=== PATIENT | female | born 1950 | race Caucasian/White ===

== ENCOUNTER → 2016-10-24 | Outpatient (CLI) | payer MEDICARE ==
--- NOTE | 2016-10-24 11:28 | KCIC ---
Clavicle right, two views Indication: Right shoulder pain. Time of exam 10:46 a.m. The glenohumeral and acromioclavicular alignment are normal. The acromial humeral space is normal. No fractures are detected. There is no dislocation. Impression: No acute bony abnormality is detected. Electronically signed by: Sheldon Carter MD (October 24, 2016 11:26:59)
--- NOTE | 2016-10-24 11:31 | KCIC ---
Shoulder four views right Indication: Right shoulder pain. Time of exam 10:43 a.m. Acromioclavicular and glenohumeral alignment are normal. The acromiohumeral space is normal. No fracture or dislocation is detected. Impression: No acute bony abnormality is detected. Electronically signed by: Sheldon Carter MD (October 24, 2016 11:29:21)
== END | disposition home or self-care (01) ==
LOC: KCIC 10-23 13:29
PROVIDERS: ATTEND Family Medicine
DX: M25.511 Pain in right shoulder (principal)
CPT/HCPCS: 73000; 73030

== ENCOUNTER → 2016-11-12 | Outpatient (CLI) | payer MEDICARE ==
--- NOTE | 2016-11-12 14:41 | KCIC ---
Indication: Right shoulder pain for several weeks. Multiplanar multisequence imaging of the right shoulder was performed without contrast. The marrow signal intensity is unremarkable. Glenohumeral and acromioclavicular alignment are normal. The biceps tendon appears to be in a normal location within the bicipital groove. Subscapularis tendon of the rotator cuff is intact. There appears to be a full-thickness tear of the supraspinatus tendon of the rotator cuff anteriorly. The defect measures approximate 9 mm transverse dimension. Small amount of fluid is seen within the subacromial subdeltoid bursa. No significant retraction is identified. The infraspinatus tendon is intact. IMPRESSION: Findings consistent with a full-thickness tear of the supraspinatus tendon near its insertion on the footprint. No significant retraction is seen. Electronically signed by: Sheldon Carter MD (11/12/2016 2:37 PM)
== END | disposition home or self-care (01) ==
LOC: KCIC MRI 12:47
PROVIDERS: ATTEND Nurse Practitioner Gerontology
DX: M75.101 Unspecified rotator cuff tear or rupture of right shoulder, not specified as traumatic (principal)
CPT/HCPCS: 73221

== ENCOUNTER → 2016-11-15 | Outpatient (CLI) | payer MEDICARE ==
--- NOTE | 2016-11-15 12:11 | PMGORTHO ---
Bilateral knees, 6 views, 11/15/2016: History: Knee pain AP standing, lateral and tangential patellar views of both knees were obtained as requested. There is narrowing of the medial compartments of both knee joints, worse on the left. There is moderate marginal spurring bilaterally. There is moderate hypertrophic degenerative change at both patellofemoral articulations. No acute fracture or dislocation is identified. Suprapatellar calcific densities on the right probably represent loose bodies in the suprapatellar bursa. Small periarticular calcifications on the left may also be loose bodies. IMPRESSION: 1. Moderate bilateral hypertrophic degenerative change. 2. No acute bony abnormality is detected.
== END ==
LOC: PMGORTHO 11:05
PROVIDERS: ATTEND Nurse Practitioner Gerontology

== ENCOUNTER 2016-12-11 06:27 | Day surgery (SDC) | payer MEDICARE ==
[~2016-12-11 06:27] MED LIST: CHOL10002 PO; CYAN250012 PO; FLUO20TA11 PO; HYDR-2762 PO; LEVO75TA5 PO; LISI1TAB7 PO; LOVA20TA2 PO; OMEP20TA63 PO; PROAIR HFA8.5 GM INH; TRAZ50TA15 PO
[2016-12-11] MEDS ORDERED: EPINEPHrine VIAL 30 MG/30 ML VIAL ONE (06:28)
[2016-12-11] MEDS ORDERED: LIDOCAINE 1% PF 30 ML VIAL. ONE (06:28)
[2016-12-11] MEDS ORDERED: BUPIVACAINE MPF 0.5% 30 ML VIAL. ONE (06:28)
[2016-12-11] MEDS ORDERED: IV RINGERS,LACTATED 1000ML 1,000 ML IV SCH (07:00)
[2016-12-11] MEDS ORDERED: LIDOCAINE 1% 1 ML SYRINGE. ID PRN (07:00)
[2016-12-11] MEDS ORDERED: MORPHINE SULFATE 2 MG/ML DISP.SYRIN. IV PRN (07:00)
[2016-12-11] MEDS ORDERED: HYDROmorphone 2 MG/ML VIAL IV PRN (07:00)
[2016-12-11] MEDS ORDERED: fentaNYL PF VIAL 100 MCG/2 ML VIAL IV PRN ×2 (07:00)
[2016-12-11] MEDS ORDERED: ONDANSETRON PF 4 MG/2 ML VIAL. IV PRN (07:00)
[2016-12-11] MEDS ORDERED: PROCHLORPERAZINE 10 MG/2 ML VIAL. IV PRN (07:00)
[2016-12-11] MEDS ORDERED: BUPIVACAINE MPF 0.25% 30 ML VIAL. ONE (07:27)
--- NOTE | 2016-12-11 07:37 | DISCH ---
DISCHARGE INSTRUCTIONS Condition on Discharge Condition on Discharge: Stable Activity After Discharge Activity Instructions for Disc: Other, see below Other activity instructions: arm to remain in sling Bathing Instructions: Shower-keep dressing dry Weight Bearing Status after Di: Non weight bearing Diet after Discharge Diet after Discharge: Regular Wound Incision Care Wound/Incision Care: Ice to area for comfort, Keep wound/cast CDI, Change dressing Contacting the DR. after DC Call your doctor for: Concerns you may have Follow-Up Follow up with: Wilma in 2 wks PAUL WOODARD II, MD Dec 11, 2016 07:37
[2016-12-11] MEDS ORDERED: LIDOCAINE 2% PF Vial for OR 5 ML VIAL. ONE (07:38)
[2016-12-11] MEDS ORDERED: ROCURONIUM 50 MG/5 ML VIAL. ONE (07:38)
[2016-12-11] MEDS ORDERED: PROPOFOL 20 ML IV ONE (07:38)
[2016-12-11] MEDS ORDERED: ONDANSETRON PF 4 MG/2 ML VIAL. ONE (07:38)
[2016-12-11] MEDS ORDERED: DEXAMETHASONE SOD PHOS 20 MG/5 ML VIAL. ONE (07:38)
[2016-12-11] MEDS ORDERED: fentaNYL PF VIAL 100 MCG/2 ML VIAL ONE (07:39)
--- NOTE | 2016-12-11 07:39 | PDOC ---
BRIEF OPERATIVE NOTE Date: Dec 11, 2016 Pre-Op Diagnosis R RTC tear Post-Op Diagnosis same Procedure Performed Mini Open RTC repair Surgeon Wilma Door Technician Rachel Anesthesiologist Anastacio Anesthesia Type: General, Regional Complications none PAUL WOODARD II, MD Dec 11, 2016 07:39
--- NOTE | 2016-12-11 08:18 | ACF ---
Admission Forms Criteria AMBULATORY SURGERY EXCEPTION CRITERIA Ambulatory Surgery Exception Criteria ( Place 'X' for any and all applicable criteria): Surgery or procedure performed on ambulatory basis may require inpatient stay for[A] ANY ONE of the following(1)(2)(3)(4)(5)(6)(7)(8)(9): [] I. A preoperative situation, condition, or finding that warrants inpatient stay as indicated by ANY ONE of the following: [] a) Inpatient care needed because of severity of a disease or condition rather than the surgery (eg, severe cardiac or respiratory disease, severe infection) (15) (16 ) (17) (18) [] b) Emergent procedure (eg, angioplasty for acute ischemia)(19) [] c) Complex surgical approach or situation as indicated by ANY ONE of the following(3): [] i) Open approach needed instead of usual endoscopic, transcatheter, or other less invasive procedure [] ii) Difficult approach because of previous operation [] iii) Airway monitoring required after open neck procedures(20)(21 ) [] iv) Large mass requiring unusually extensive dissection [] v) Additional complicating feature requiring inpatient care (eg , drain management)(22(23): [] d) Major surgery in a pt with high anesthetic risk as indicated by ANY ONE of the following (2)(3)(5)(7)(8): [] i) ASA risk class III or higher (severe systemic disease impairing function) [D] [] ii) Advanced age (eg, older than 85 years)(14)(24) [] iii) Symptomatic heart failure(25) [] iv) Symptomatic asthma or COPD(8)(21) [] v) Morbid obesity with hemodynamic or respiratory problems(20)( 21)(26)(27) [] vi) Obstructive sleep apnea(20)(21) [] vii) Former premature infants who are younger than 60 weeks [] viii) High risk for severe postoperative abnormalities (eg, severe postoperative hypocalcemia after parathyroidectomy for severe hyperparathyroidism)(27)( 28) [] ix) Unstable angina(25) [] e) Drug-related risk requiring inpatient stay as indicated by ANY ONE of the following(5)(10)(14)(32)(33) [] i) Procedure requires discontinuing drugs or other therapy (eg , antiarrhythmic medication, antiseizure medication), which necessitates inpatient observation or treatment.(18)(31) [] ii) Major surgery and high risk drug use as indicated by ANY ONE of the following: [] 1) Active abuse of cocaine or similar drug [] 2) Monoamine oxidase inhibitor use [] 3) Other drug identified as posing risk [] f) Inadequate outpatient care situation as indicated by ANY ONE of the following(5)(10)(14)(32)(33) [] i) Patient lives remote from medical facility and procedure has urgent complication potential, and temporary nearby residence cannot be arranged [] ii) Patient will have postprocedure incapacitation and inadequate assistance at home, or alternative level of care cannot be arranged. [] iii) Patient will have long general anesthesia or procedure side effect resolution time, and competent person to stay with patient on first postoperative night at home or alternative level of care cannot be arranged. [] iv) Other inadequate outpatient situation that cannot be handled by other means [ ] II. A perioperative event, condition, or finding that warrants inpatient stay as indicated by ANY ONE of the following (1)(2)(3): [] a) Inadequate physiologic recovery: cardiovascular, respiratory, or hemodynamic status not normal or near preoperative baseline(18) [] b) Hemodynamic instability [] c) Patient not alert with near normal or baseline mental status [] d) Temperature not normal or as expected and not appropriate for outpatient treatment of condition [] e) Ambulatory or appropriate activity level status not yet achieved post procedure [E](34)(35)(36) [] f) Operative site not appropriate (eg, unexpected or excessive drainage or bleeding) [] g) Postoperative effects not resolved or adequately managed (eg, significant pain or vomiting not appropriate for outpatient or next level of care)(10)(12) [] h) Complicating features requiring inpatient care as indicated by ANY ONE of the following(37): [] i) Severe complications of procedure (eg, bowel injury, airway compromise, vascular injury,severe hemorrhage) [] ii) Extensive (eg, dissection far beyond usual scope of procedure ) or prolonged (eg, 120 minutes beyond usual) surgery needed requiring inpatient postoperative care [] iii) Conversion to an open or complex procedure that requires inpatient care (eg, open vs laparoscopic cholecystectomy, abdominal vs vaginal hysterectomy)(38) [] iv) Comorbid condition or test result identified during or post procedure that requires inpatient care (7) [] v) Malignant hyperthermia(30) [] vi) Other complicating feature requiring inpatient care(22)(23) Inpatient stay may be needed until ALL of the following are present (1)(2)(3)(4) (5)(6)(10)(14)(33)(40): []a) Physiologic recovery: cardiovascular, respiratory, and hemodynamic status normal or near preoperative baseline []b) Hemodynamic stability []c) Patient alert, with near normal or baseline mental status []d) Temperature appropriate: patient afebrile or temperature appropriate for outpt treatment of condition []e) Activity level appropriate: ambulatory or appropriate activity level post procedure []f) Operative site appropriate as indicated by ALL of the following: []i) Site dry or with expected drainage []ii) Any blood noted is as expected for procedure. []g) Postoperative effects resolved or managed as indicated by ALL of the following: []i) Pain management appropriate for outpatient (or next level of) care(10) []ii) Minimal nausea and vomiting: if present, successfully treated with oral medication(12) []iii) Headache, dizziness, or drowsiness (if present) are mild. []h) Voiding status acceptable as indicated by ANY ONE of the following: []i) Voiding spontaneously []ii) No voiding but instructions given for follow-up in 6 to 8 hours []iii) Urinary catheter in place, and instructions given for follow-up []i) Complicating features requiring inpatient care manageable at a lower level of care(37) []j) Comorbid conditions manageable at a lower level of care(37) The original [employer] content created by [employer] has been revised. The portions of the content which have been revised are identified through the use of italic text or in bold, and [employer] has neither reviewed nor approved the modified material. All other unmodified content is copyright [employer]. Please see references footnoted in the original [employer] edition 2016 ANY العلي Dec 11, 2016 08:18
[2016-12-11] MEDS ORDERED: ePHEDrine PF IN SALINE 50 MG/5 ML DISP.SYRIN IV ONE (08:35)
[2016-12-11] MEDS ORDERED: VASOPRESSIN 20 UNIT/ML VIAL. ONE (08:39)
[2016-12-11] MEDS ORDERED: NEOSTIGMINE 10 MG/10 ML VIAL. ONE (09:16)
[2016-12-11] MEDS ORDERED: GLYCOPYRROLATE 1 MG/5 ML VIAL. ONE (09:16)
[2016-12-11] MEDS ORDERED: oxyCODONE/APAP 5/325 1 TAB TABLET ONE (10:23)
[2016-12-11] MEDS ORDERED: oxyCODONE/APAP 5/325 1 TAB TABLET PO ONE (10:30)
[2016-12-11 10:50] VITALS: BP 119/35
--- NOTE | 2016-12-11 11:51 | OP ---
DATE OF SURGERY: 12/11/2016 SURGEON: Micky Woodard MD WASHHOUSE WORKER: Kim Ramos. ANESTHESIA: General plus regional nerve block. PREOPERATIVE DIAGNOSIS: Right shoulder rotator cuff tear. POSTOPERATIVE DIAGNOSIS: Right shoulder rotator cuff tear. PROCEDURE PERFORMED: Mini open right shoulder rotator cuff repair. COMPLICATIONS: None. ESTIMATED BLOOD LOSS: 25 mL. REASON FOR PROCEDURE: The patient is a very pleasant 66-year-old female with persistent and progressive shoulder pain and dysfunction. Clinical and radiographic workup including MRI were consistent with the above preoperative diagnosis. We had discussion of the risks, benefits, alternatives of proceeding with the above surgery and she elected to proceed. DESCRIPTION OF PROCEDURE: The patient was greeted in the preoperative holding area where the correct extremity was marked and verified. She then had a regional nerve block placed by the anesthesiologist and was taken back to the operative suite. Antibiotics were started en route. Once in the OR, she was transferred gently supine to the OR table and had successful induction with general anesthesia. We then set her up in a beach chair position with all pressure points padded and a large pad under her legs. She was secured to the bed. C-spine was maintained in a neutral position. We then proceeded to prep and drape the right upper extremity and shoulder girdle in our usual sterile fashion including [place] at the periphery. We then conducted a standard preoperative timeout. I then palpated, marked the surface anatomy and made about a 6 cm incision off the lateral edge of her acromion and dissected subcutaneous tissue with [place] and the electrocautery to cauterize bleeders. I identified her deltoid fascia and identified the rhaphe in her deltoid and used a scalpel to incise this and a Plato to dissect through her deltoid fibers. I then placed a Gelpi retractor in this deltoid split I had created and then excised bursal tissue. I then had an payroll and benefits assistant pull up under her acromion with an [place] and I visualized the rotator cuff tear. She had a full thickness tear in some areas where the rotator cuff was quite thin and attenuated at its attachments, so I took this down with the scalpel. I then passed #2 Ultrabraid through the tear. Her tear had good mobility. I then shuttled the Ultrabraid through bone tunnels after I created a trough at the rotator cuff footprint with a rongeur. After shuttling these I then tied down the corresponding suture limbs to each other over a bony bridge. This gave a good repair. There was no gapping at the repair with gentle rotation of her shoulder. We then irrigated out the operative field with sterile normal saline. I then closed her deltoid split after removing my retractors with 0 Vicryl in a running fashion. I used inverted interrupted 0 Vicryl for the deeper subcutaneous tissue and inverted interrupted 2-0 for the more superficial subcutaneous tissue. 4-0 Monocryl was then used for skin. Prior to completion of wound closure, all counts were reported as correct x 2. No complications. We then cleansed and dried the arm, placed a sterile dressing. The patient's right upper extremity was then placed into a sling. She was then awakened from anesthesia, laid gently supine and transferred supine to the recovery room cart and taken to PACU in stable and extubated condition. Postop plan is to discharge her home. She will follow up with me in 2 weeks, sooner should problems arise. MICKY WOODARD MD DR: PATTIE/apolonia JOB#: [id number] / [id number] LEONELA
== END 2016-12-11 11:39 | disposition home or self-care (01) ==
LOC: SURG 06:27
PROVIDERS: ATTEND Orthopaedic Surgery Sports Medicine
DX: S46.011A Strain of muscle(s) and tendon(s) of the rotator cuff of right shoulder, initial encounter (principal); X58.XXXA Exposure to other specified factors, initial encounter; Y93.89 Activity, other specified; Y92.89 Other specified places as the place of occurrence of the external cause; Y99.9 Unspecified external cause status; E78.00 Pure hypercholesterolemia, unspecified; I10 Essential (primary) hypertension; J45.909 Unspecified asthma, uncomplicated; E66.9 Obesity, unspecified; Z68.44 Body mass index [BMI] 60.0-69.9, adult; E03.9 Hypothyroidism, unspecified; K21.9 Gastro-esophageal reflux disease without esophagitis; F41.9 Anxiety disorder, unspecified; M19.90 Unspecified osteoarthritis, unspecified site; F32.9 Major depressive disorder, single episode, unspecified; Z87.39 Personal history of other diseases of the musculoskeletal system and connective tissue; Z72.89 Other problems related to lifestyle; Z87.440 Personal history of urinary (tract) infections; Z88.2 Allergy status to sulfonamides; Z98.41 Cataract extraction status, right eye; Z98.42 Cataract extraction status, left eye
CPT/HCPCS: 23410; C1782; J0171; J0690; J1100; J2405; J2704; J2710; J3010; J3490; J7120

== ENCOUNTER → 2017-10-07 | Outpatient (CLI) | payer MEDICARE | END | disposition home or self-care (01) | LOC: RAD 09:37 | DX: Z01.818 Encounter for other preprocedural examination (principal); M17.12 Unilateral primary osteoarthritis, left knee; M25.462 Effusion, left knee; M71.22 Synovial cyst of popliteal space [Baker], left knee; I10 Essential (primary) hypertension; E03.9 Hypothyroidism, unspecified | CPT/HCPCS: 73721; 77073 ==

== ENCOUNTER → 2017-10-27 | Outpatient (CLI) | payer MEDICARE ==
[2017-10-27 09:30] LABS: ADD MAN DIFF? NO
[2017-10-27 09:54] LABS: BASO # 0.1 x10^3/uL (0.0-0.2); BASO % 1 % (0-3); EOS # 0.2 x10^3/uL (0.0-0.7); EOS % 3 % (0-3); HEMATOCRIT 35.9 % (36.0-47.0); HEMOGLOBIN 11.7 g/dL (12.0-15.5); LYMPH # 2.7 x10^3/uL (1.0-4.8); LYMPH % 40 % (24-48); MEAN CORPUSCULAR HEMOGLOBIN 30 pg (25-35); MEAN CORPUSCULAR HGB CONC 33 g/dL (31-37); MEAN CORPUSCULAR VOLUME 92 fL (79-100); MONO # 0.4 x10^3/uL (0.0-1.1); MONO % 7 % (0-9); NEUT # 3.4 x10^3uL (1.8-7.7); NEUT % 50 % (31-73); PLATELET COUNT 304 x10^3/uL (140-400); RED BLOOD COUNT 3.92 x10^6/uL (3.50-5.40); RED CELL DISTRIBUTION WIDTH 14.3 % (11.5-14.5); WHITE BLOOD COUNT 6.8 x10^3/uL (4.0-11.0)
[2017-10-27 09:57] LABS: ALBUMIN 3.5 g/dL (3.4-5.0); ANION GAP 7 (6-14); BLOOD UREA NITROGEN 20 mg/dL (7-20); CALCIUM 9.2 mg/dL (8.5-10.1); CARBON DIOXIDE 32 mmol/L (21-32); CHLORIDE 104 mmol/L (98-107); GFR 55.3; GLUCOSE 95 mg/dL (70-99); PARTIAL THROMBOPLASTIN TIME 27 SEC (24-38); POTASSIUM 4.3 mmol/L (3.5-5.1); PROTHROMBIN TIME PATIENT 12.8 SEC (11.7-14.0); SODIUM 143 mmol/L (136-145)
[2017-10-27 10:50] LABS: SEDIMENTATION RATE 38 (0-25)
[2017-10-27 11:38] LABS: BILIRUBIN,URINE NEGATIVE (NEG); CLARITY,URINE CLEAR; COLOR,URINE YELLOW; GLUCOSE,URINE NEGATIVE (NEG); NITRITE,URINE NEGATIVE (NEG); PH,URINE 8.5; PROTEIN,URINE NEGATIVE (NEG-TRACE); UROBILINOGEN,URINE 0.2 mg/dL (0.2 mg/dL)
[2017-10-27 11:50] LABS: BACTERIA,URINE MODERATE /HPF (0-FEW); RBC,URINE OCC /HPF (0-2)
[2017-10-27 11:51] LABS: SQUAMOUS EPITHELIAL CELL,UR MANY /LPF
[2017-10-27 21:14] LABS: MRSA BY PCR Negative (Negative)
== END | disposition home or self-care (01) ==
LOC: SURGPAT 12:55
DX: Z01.818 Encounter for other preprocedural examination (principal); M17.12 Unilateral primary osteoarthritis, left knee; I10 Essential (primary) hypertension; E78.00 Pure hypercholesterolemia, unspecified
CPT/HCPCS: 36415; 71046; 80048; 81001; 82040; 85025; 85610; 85651; 85730; 87086; 87641; 93005

== ENCOUNTER → 2019-01-08 | Outpatient (CLI) | payer MEDICARE, OTHER ==
[2017-11-13 14:32] VITALS: BP 113/60
[~2019-01-08] MED LIST changes: +ALBU2.5V8 INH; +BIOT1CAP3 PO; +DICL100G18 TP; +FERR325T14 PO; -HYDR-2762 PO; +HYDR-2765 PO; +IBUP200T58 PO; +MAGN400C PO; -PROAIR HFA8.5 GM INH; +TRAZ-118 PO; -TRAZ50TA15 PO; +WARF1TAB74 PO
--- NOTE | 2019-01-08 16:36 | KCIC ---
BILATERAL SCREENING MAMMOGRAM, 3-D History: Routine screening. Comparison: Bilateral mammogram January 19, 2016. Technique: MLO and CC digital tomosynthesis (3D) images obtained. Radiologist reviewed these images on dedicated workstation. Findings: Breast Tissue Density B : There are scattered areas of fibroglandular density. Parenchymal asymmetry in the upper-outer right breast is stable. Scattered bilateral benign calcifications. There are no dominant masses, suspicious microcalcifications, or architectural distortion. IMPRESSION: No mammographic evidence of malignancy. Recommend routine screening. BI-RADS category 2: Benign findings. The images were reviewed with computer-aided detection. Patient information is entered into reminder system with a target due date for the next screening mammogram. Mammography is the most sensitive method for finding small breast cancers, but it does not detect them all and is not a substitute for careful clinical examination. A negative mammogram does not negate a clinically suspicious finding and should not result in delay in biopsying a clinically suspicious abnormality. "Our facility is accredited by the [employer] Mammography Program." Electronically signed by: Jesse Morris MD (01/08/2019 4:33 PM) [id number]
== END | disposition home or self-care (01) ==
LOC: KCIC MAMMO 13:46
PROVIDERS: ATTEND Family Medicine
DX: Z12.31 Encounter for screening mammogram for malignant neoplasm of breast (principal); N64.89 Other specified disorders of breast
CPT/HCPCS: 77063; 77067

== ENCOUNTER → 2020-04-07 | Outpatient (CLI) | payer MEDICARE, OTHER ==
[2017-11-13 14:32] VITALS: BP 113/60
[~2020-04-07] MED LIST changes: -DICL100G18 TP; +DICL100G54 TP; +LISI1TAB20 PO; -LISI1TAB7 PO; +WARF1TAB2 PO; -WARF1TAB74 PO
--- NOTE | 2020-04-07 15:24 | KCIC ---
Bilateral digital screening mammograms with 3-D tomosynthesis: Reason for examination: Routine screening. Comparison is made to previous studies dated back to 01/07/2014. Bilateral mammograms in CC and oblique projections were obtained with 2-D imaging and 3-D tomosynthesis imaging on a Siemens Inspiration unit and reviewed on the workstation. Interpretation was made with the benefit of CAD. The skin and nipples show no abnormalities. No abnormal axillary lymph nodes are seen. The breast parenchyma shows scattered fatty and fibroglandular density. (Breast density: Category B.) There continue to be small nodular parenchymal densities in the upper outer quadrant of the right breast which are stable. There are no new dominant masses, suspicious calcifications or architectural distortion. Benign calcifications are present. Impression: No evidence of malignancy. Recommend routine screening. BI-RAD Category 2: Benign. "Our facility is accredited by the [employer] Mammography Program." This patient's information has been entered into a reminder system for the patient to be notified with the results of her examination and a target date for the next mammogram. Electronically signed by: Jemma Balderas MD (04/07/2020 3:21 PM) [id number]
== END ==
LOC: KCIC MAMMO 10:11
PROVIDERS: ATTEND Family Medicine
DX: Z12.31 Encounter for screening mammogram for malignant neoplasm of breast (principal); N64.89 Other specified disorders of breast
CPT/HCPCS: 77063; 77067

== ENCOUNTER → 2020-06-28 | Outpatient (CLI) | payer MEDICARE ==
[2017-11-13 14:32] VITALS: BP 113/60
[~2020-06-28] MED LIST changes: +IOHEXOL 240 MG/ML 50ML VIAL. PO ONE; +IOHEXOL 300 MG/ML 100ML VIAL. IV ONE
--- NOTE | 2020-06-28 15:05 | KCIC ---
EXAM: Abdomen and pelvis CT with intravenous contrast. HISTORY: Pain. TECHNIQUE: Computed tomographic images of the abdomen and pelvis were obtained following the administ ration of intravenous contrast. Multiplanar reformatting was performed. *One or more of the following individualized dose reduction techniques were utilized for this examina tion: 1. Automated exposure control. 2. Adjustment of the mA and/or kV according to patient size. 3. Use of iterative reconstruction technique. COMPARISON: None. FINDINGS: Evaluation of the lower thorax demonstrates no infiltrate or pleural effusion. There is car diomegaly. No hepatic lesion is seen. There is cholelithiasis. The pancreas, spleen, adrenal glands a nd right kidney are unremarkable. There is a small cortical cyst within the posterior mid zone of the left kidney. There is no appendicitis. There is no bowel obstruction. There is distal colonic divert iculosis. There is no convincing diverticulitis. The bladder is nearly empty. No uterine or adnexal m ass is seen. The aorta is unremarkable. There is no lymphadenopathy. There is no suspicious or acute osseous finding.. IMPRESSION: 1. Cholelithiasis. 2. Diverticulosis. 3. Small left renal cyst. Follow up is not routinely recommended for simple cysts. Electronically signed by: Marta Guardado MD (06/28/2020 3:03 PM) [id number]
== END ==
LOC: KCIC CT 12:37
PROVIDERS: ATTEND Family Medicine
DX: K80.20 Calculus of gallbladder without cholecystitis without obstruction (principal); N28.1 Cyst of kidney, acquired; K57.90 Diverticulosis of intestine, part unspecified, without perforation or abscess without bleeding
CPT/HCPCS: 74177; Q9966; Q9967

== ENCOUNTER → 2020-08-01 | Outpatient (CLI) | payer MEDICARE ==
[2017-11-13 14:32] VITALS: BP 113/60
[~2020-08-01] MED LIST changes: +FLUO60TA PO; -IOHEXOL 240 MG/ML 50ML VIAL. PO ONE; -IOHEXOL 300 MG/ML 100ML VIAL. IV ONE; +OXYC-325 PO
== END ==
LOC: LAB 13:21
PROVIDERS: ATTEND Surgery
DX: Z01.812 Encounter for preprocedural laboratory examination (principal); Z20.822 Contact with and (suspected) exposure to COVID-19; K80.10 Calculus of gallbladder with chronic cholecystitis without obstruction
CPT/HCPCS: U0003

== ENCOUNTER 2020-08-04 06:01 | Day surgery (SDC) | payer MEDICARE ==
[~2020-08-04] VITALS: Ht 162.6 cm; Wt 88.5 kg
[~2020-08-04 06:01] MED LIST changes: +ACETAMINOPHEN 500 MG TABLET PO PRN; +HYDROmorphone 2 MG/ML VIAL IVP PRN; +IV RINGERS,LACTATED 1000ML 1,000 ML IV SCH; +MORPHINE SULFATE 2 MG/ML VIAL. IVP PRN; -OXYC-325 PO; +PROCHLORPERAZINE 10 MG/2 ML VIAL. IVP PRN; +fentaNYL PF VIAL 100 MCG/2 ML VIAL IVP PRN
[2020-08-04] MEDS ORDERED: PROPOFOL 10 MG/ML (20ML) VIAL. IV ONE (06:41)
[2020-08-04] MEDS ORDERED: ROCURONIUM 50 MG/5 ML VIAL. ONE (06:42)
[2020-08-04] MEDS ORDERED: ONDANSETRON PF 4 MG/2 ML VIAL. ONE (06:42)
[2020-08-04] MEDS ORDERED: LIDOCAINE 2% PF 5 ML VIAL. ONE (06:42)
[2020-08-04] MEDS ORDERED: DEXAMETHASONE SOD PHOS 4 MG/ML VIAL ONE (06:42)
[2020-08-04] MEDS ORDERED: SURGICEL HEMOSTAT 4X8 EACH. ONE (06:55)
[2020-08-04] MEDS ORDERED: BUPIVACAINE-EPI 0.25% 30 ML VIAL KIT. ONE (06:55)
[2020-08-04] MEDS ORDERED: IOHEXOL 300 MG/ML 50 ML VIAL. ONE (06:55)
[2020-08-04] MEDS ORDERED: NEOSTIGMINE METHYLSULFATE 5 MG/5 ML SYRINGE. ONE (07:06)
[2020-08-04] MEDS ORDERED: fentaNYL PF VIAL 100 MCG/2 ML VIAL ONE (07:06)
[2020-08-04] MEDS ORDERED: GLYCOPYRROLATE 1 MG/5 ML VIAL. ONE (07:06)
--- NOTE | 2020-08-04 07:57 | PDOC4 ---
Operative Note Operative Note Date: August 042020 at 07 55 Preoperative diagnosis: Chronic cholecystitis cholelithiasis Postoperative diagnosis: Same Procedure: Laparoscopic cholecystectomy Surgeon: Ismael Specimen: Gallbladder Tatian: Patient is 69-year-old female with right upper quadrant abdominal pain and CT scan showing gallstones. Procedure of laparoscopic cholecystectomy was explained to the patient detail risk benefits were also discussed including bleeding infection injury to intra-abdominal contents possibly necessitating further open operations alternatives to this procedure also discussed with patient who seemed to understand and gave both verbal and written consent to have the procedure performed. Patient was taken to the operating room placed in supine position general anesthesia was initiated once patient was asleep and intubated her abdomen was prepped and draped usual sterile fashion using ChloraPrep. Area just below the umbilicus was injected quarter percent Marcaine with epinephrine incision was made 11 blade scalpel and a varies needle was placed within the abdomen creating pneumoperitoneum once this was complete 11 mm port was placed in a 5 mm camera was placed within the abdomen which was inspected no other abnormalities were noted. A 5 mm port was placed in the epigastrium a 5 mm port was placed in the right midabdomen a 5 mm port was placed in the right lateral abdomen. The dome of the gallbladder is grasped retracted cephalad the infundibulum the gallbladder is grasped retracted laterally exposing the triangle. The adherent tissues the triangle were taken down with blunt dissection exposing the cystic duct and cystic artery both were doubly clipped and transected the gallbladder was taken off the liver with hook electrocautery placed in Endo Catch bag removed and the umbilicus right upper quadrant is irrigated and suctioned dry hemostasis deemed be appropriate the pneumoperitoneum was reduced all ports were removed the fascial defect at the umbilicus was closed with a [id number] 0 Vicryl suture and the skin was reapproximated all port sites for subcuticular Monocryl Mastisol Steri-Strips and island dressings were applied. Patient was awakened and extubated in the operating room taken to recovery in stable condition all sponge instrument needle counts listed as correct estimated blood loss 30 mL. PATRICE JIMENES MD Aug 04, 2020 07:57
--- NOTE | 2020-08-04 07:59 | DISCH ---
DISCHARGE INSTRUCTIONS Condition on Discharge Condition on Discharge: Stable Activity After Discharge Activity Instructions for Disc: Avoid exertion Other activity instructions: No lifting more than 20 pounds for 2 weeks Diet after Discharge Diet after Discharge: Low Fat Diet Texture: Regular Wound Incision Care Other wound/incision instructi: May shower in 24 hours Contacting the DRJesu after DC Call your doctor for: If your condition worsens Follow-Up Follow up with: Dr. Guevara in 2 weeks Treatment/Equipment after DC Adaptive Equipment Issued: PATRICE Stewart MD Aug 04, 2020 07:59
[2020-08-04] MEDS ORDERED: OXYC-325 PO (08:36)
[2020-08-04] MEDS ORDERED: oxyCODONE/APAP 5/325 1 TAB TABLET PO ONE ×2 (08:45)
[2020-08-04] MEDS ORDERED: PROCHLORPERAZINE 10 MG/2 ML VIAL. ONE (08:56)
[2020-08-04 09:04] VITALS: BP 128/49
--- NOTE | 2020-08-07 21:39 | PATHOLOGY ---
[facility] Accession Number: [id number] . 01 Material submitted: . gallbladder - GALLBLADDER AND CONTENTS . 01 Clinical history: . CHRONIC CHOLECYSTITIS . 02 Diagnosis: Gallbladder, laparoscopic cholecystectomy: - Cholelithiasis. - Chronic follicular and focal early mild acute cholecystitis. ([facility] 08/07/2020) [facility] 08/07/2020 1527 Local . 02 Comment: There is no evidence of malignancy. ([facility] 08/07/2020) . 02 Electronically signed: . Neeraj Silverman MD, Pathologist NPI- [id number] . 01 Gross description: . Received in formalin labeled "Ana Duncan, gallbladder and contents" is a previously opened cholecystectomy specimen measuring 6.7 x 3.2 x 2.5 cm. The serosa is cowart-pink and smooth with a full thickness defect in the fundus measuring 0.7 cm. The specimen is opened to reveal cowart velvety mucosa without polyps or masses. The average wall thickness is 0.2 cm. Multiple multifaceted black calculi are present within the gallbladder measuring in aggregate 3.0 x 2.4 x 1.5 cm and ranging from 0.2-1.4 cm in greatest dimension. Carriage Operator sections of the fundus and body and the cystic duct margin are submitted in A1. ([facility]; 08/05/2020) [facility] 08/05/2020 0900 Local . 02 Pathologist provided ICD-10: K80.12 . 02 CPT . 107519 Specimen Comment: A courtesy copy of this report has been sent to [phone] Specimen Comment: Report sent to Performed at: [address], [place], [place] [id number] MD Jeovanny Hawkins MD Phone: [phone] Performed at: [address] [id number] MD Neeraj Silverman MD Phone: [phone]
== END 2020-08-04 09:37 | disposition home or self-care (01) ==
LOC: SURG 06:01
PROVIDERS: ATTEND Surgery
DX: K80.10 Calculus of gallbladder with chronic cholecystitis without obstruction (principal); I10 Essential (primary) hypertension; E78.00 Pure hypercholesterolemia, unspecified; K21.9 Gastro-esophageal reflux disease without esophagitis; E66.9 Obesity, unspecified; M19.90 Unspecified osteoarthritis, unspecified site; E03.9 Hypothyroidism, unspecified; F41.9 Anxiety disorder, unspecified; F32.9 Major depressive disorder, single episode, unspecified; Z87.440 Personal history of urinary (tract) infections; Z79.899 Other long term (current) drug therapy; Z98.890 Other specified postprocedural states; Z88.1 Allergy status to other antibiotic agents; Z88.2 Allergy status to sulfonamides; Z72.89 Other problems related to lifestyle
CPT/HCPCS: 47562; J0690; J0780; J1100; J2405; J2704; J2710; J3010; J3490; J7120; Q9967

== ENCOUNTER → 2021-01-05 | Outpatient (CLI) | payer MEDICARE ==
[~2021-01-05] MED LIST changes: -ACETAMINOPHEN 500 MG TABLET PO PRN; -HYDROmorphone 2 MG/ML VIAL IVP PRN; -IV RINGERS,LACTATED 1000ML 1,000 ML IV SCH; -MORPHINE SULFATE 2 MG/ML VIAL. IVP PRN; +OXYC-325 PO; -PROCHLORPERAZINE 10 MG/2 ML VIAL. IVP PRN; -fentaNYL PF VIAL 100 MCG/2 ML VIAL IVP PRN
--- NOTE | 2021-01-08 18:20 | CARD ---
MR#: [id number] Date of Study: 01/05/2021 Ordering Physician: JEREMIAS BATEMAN, Referring Physician: JEREMIAS BATEMAN, Tech: Mannie Aguirre [facility] APPROVED REPORT EXAM: Two-dimensional and M-mode echocardiogram with Doppler and color Doppler. Other Information Quality : AverageHR: 67bpm Rhythm : NSR INDICATION Dyspnea 2D DIMENSIONS Left Atrium(2D)3.7 (1.6-4.0cm)IVSd1.0 (0.7-1.1cm) Aortic Root(2D)3.2 (2.0-3.7cm)LVDd5.1 (3.9-5.9cm) LVOT Diameter2.1 (1.8-2.4cm)PWd0.9 (0.7-1.1cm) LVDs3.0 (2.5-4.0cm)FS (%) 41.2 % SV90.6 ml Aortic Valve AoV Peak Juan.137.8cm/sAoV VTI30.9cm AO Peak GR.7.6mmHgLVOT Peak Juan.79.2cm/s AO Mean GR.4mmHgAVA (VMAX)2.03cm2 AI P 1/2 [id number] Mitral Valve MV E Cqtbpbgp10.5cm/sMV E Peak Gr.4mmHg MV DECEL [id number] A Ahjplgvo35.5cm/s MV E Mean Gr.1mmHgE/A Ratio1.2 Pulmonary Valve PV Peak Jqcsqvgo98.1cm/s Tricuspid Valve TR P. Fqiwojgj690jb/sTR Peak Gr.45mmHg Pulmonary Vein S1 Nioqofdx56.9cm/sD2 Tsgflqgc71.7cm/s LEFT VENTRICLE The left ventricle is normal size. There is normal left ventricular wall thickness. The left ventricu lar systolic function is normal and the ejection fraction is 55-60%. There is normal LV segmental wal l motion. Transmitral Doppler flow pattern is Grade I-abnormal relaxation pattern. No left ventricle thrombus noted on this study. There is no ventricular septal defect visualized. There is no left vent ricular aneurysm. There is no mass noted in the left ventricle. RIGHT VENTRICLE The right ventricle is normal size. There is normal right ventricular wall thickness. The right ventr icular systolic function is normal. ATRIA The left atrium is moderately dilated. The right atrium size is normal. The interatrial septum is int act with no evidence for an atrial septal defect or patent foramen ovale as noted on 2-D or Doppler i maging. AORTIC VALVE The aortic valve is normal in structure and function. Doppler and Color Flow revealed mild aortic reg urgitation. There is no significant aortic valvular stenosis. There is no aortic valvular vegetation. MITRAL VALVE The mitral valve is normal in structure and function. There is no evidence of mitral valve prolapse. There is no mitral valve stenosis. Doppler and Color-flow revealed mild mitral regurgitation. TRICUSPID VALVE The tricuspid valve is normal in structure and function. Doppler and Color Flow revealed mild tricusp id regurgitation. The pulmonary artery systolic pressure is estimated at 40-45 mmHg. There is no tric uspid valve prolapse or vegetation. There is no tricuspid valve stenosis. PULMONIC VALVE The pulmonary valve is normal in structure and function. Doppler and Color Flow revealed no pulmonic valvular regurgitation. There is no pulmonic valvular stenosis. GREAT VESSELS The aortic root is normal in size. The ascending aorta is normal in size. The pulmonary artery is nor mal. The IVC is normal in size and collapses >50% with inspiration. PERICARDIAL EFFUSION There is no pleural effusion. There is no evidence of significant pericardial effusion. Critical Notification Critical Value: No <Conclusion> The left ventricle is normal size. The left ventricular systolic function is normal and the ejection fraction is 55-60%. There is normal LV segmental wall motion. Doppler and Color Flow revealed mild aortic regurgitation. There is no significant aortic valvular stenosis. Doppler and Color-flow revealed mild mitral regurgitation. Doppler and Color Flow revealed mild tricuspid regurgitation. The pulmonary artery systolic pressure is estimated at 40-45 mmHg. Signed by : Rashard Fernandez MD Electronically Approved : 01/08/2021 18:20:07
== END ==
LOC: ECHO 12:52
PROVIDERS: ATTEND Internal Medicine Cardiovascular Disease
DX: I08.3 Combined rheumatic disorders of mitral, aortic and tricuspid valves (principal); R06.00 Dyspnea, unspecified
CPT/HCPCS: 93306